=== PATIENT | male | born 1965 | race Caucasian/White ===

== ENCOUNTER 2019-06-17 07:18 | Emergency (ER) | payer BC ==
[2019-06-17] MEDS ORDERED: ACETAMINOPHEN 1,000 MG/100 ML BTL IVPB ONE (07:36)
--- NOTE | 2019-06-17 07:39 | Emergency Department Record ---
History of Present Illness - General Chief complaint: Flank Pain Stated complaint: ABD PAIN Time Seen by Provider: 06/17/19 07:29 Source: Patient Mode of Arrival: Ambulatory Limitations: No limitations - History of Present Illness Initial comments: The patient is here due to the acute onset of R flank pain about an hour and a half ago. The pain was at times radiating to his R testicle and has been waxing and waning. There has been no fever, nausea, vomiting, or mid back pain. The patient has no hx of similar issues. Presently the pain is mildly improved. MD Complaint: Other Onset/Timin -: Hour(s) Location: Right flank, Right testicle Radiation: Back Severity: Severe Severity scale (1-10): 4 Consistency: Constant Improves with: None Worsens with: None Reports: Denies other symptoms - Related Data Previous Rx's Medication Instructions Recorded Ibuprofen [Motrin] 800 mg PO TID PRN #20 tab 06/17/19 Tamsulosin HCl [Flomax] 0.4 mg PO DAILY #7 cap.er.24h 06/17/19 Allergies Allergy/AdvReac Type Severity Reaction Status Date / Time No Known Drug Allergies Allergy Verified 06/17/19 07:24 Travel Screening - Travel/Exposure Within Last 30 Days Have you traveled within the last 30 days?: No Review of Systems Constitutional: Denies: Chills, Fever Eyes: Denies: Eye discharge ENT: Denies: Congestion Respiratory: Denies: Cough, Dyspnea Past Medical History - SOCIAL HISTORY Smoking Status: Never smoker Alcohol Use: Occasional Drug Use: None - RESPIRATORY Hx Respiratory Disorders: No - CARDIOVASCULAR Hx Cardio Disorders: No - NEURO Hx Neuro Disorders: No - GI Hx GI Disorders: No - Hx Genitourinary Disorders: No - ENDOCRINE Hx Endocrine Disorders: No - MUSCULOSKELETAL Hx Musculoskeletal Disorders: No - PSYCH Hx Psych Problems: No - HEMATOLOGY/ONCOLOGY Hx Hematology/Oncology Disorders: No Family Medical History Any Significant Family History?: No Physical Exam - General General Appearance: Alert, Oriented x3, Cooperative, No acute distress - Head Head exam: Atraumatic, Normocephalic, Normal inspection - Eye Eye exam: Normal appearance, PERRL - Neck Neck exam: Normal inspection, Full ROM. negative: Tenderness - Respiratory Respiratory exam: Normal lung sounds bilaterally. negative: Respiratory distress - Cardiovascular Cardiovascular Exam: Regular rate, Normal rhythm, Normal heart sounds - GI/Abdominal GI/Abdominal exam: Soft, Normal bowel sounds. negative: Rebound, Rigid, Tenderness - Extremities Extremities exam: Normal inspection, Full ROM, Normal capillary refill. negative: Tenderness - Neurological Neurological exam: Alert, Normal gait. negative: Abnormal gait - Psychiatric Psychiatric exam: negative: Anxious Course Vital Signs 06/17/19 07:20 Temperature 97.6 F Pulse Rate 57 L Respiratory 22 Rate Blood Pressure 136/76 Pulse Ox 99 - Reevaluation(s) Reevaluation #1: The patient is doing better at this time. His pain has resolved and he is resting comfortably. We are still waiting on a UA and the official CT report. 06/17/19 08:07 Reevaluation #2: The patient is doing very well at this time and is pain free with no nausea. I did discuss the plan for the Motrin and Flomax and f/U next week if he has not passed the stone. He understands the need to return to the ER for any worsening symptoms and to see his PCP to have his prostate checked. 06/17/19 09:24 Medical Decision Making - Data Complexity MDM Data: Labs Ordered and/or Reviewed, X-Ray Ordered and/or Reviewed - Lab Data Result diagrams: 06/17/19 07:32 06/17/19 07:32 - Radiology Data Radiology results: Report reviewed (CT: 4 mm R UVJ stone with minimal hydro.) Disposition Disposition: Discharge Clinical Impression: Ureteral stone with hydronephrosis Disposition: Home, Self-Care Condition: (2) Stable Instructions: Ureteral Stones (ED) Additional Instructions: Please drink plenty of fluids and strain your urine. Take Motrin for pain and use the Flomax until you pass the stone. Please see your family doctor on Thursday if you have not passed the stone. Return to the ER for any worsening pain, fever, or vomiting. Prescriptions: Tamsulosin HCl [Flomax] 0.4 mg PO DAILY #7 cap.er.24h Ibuprofen [Motrin] 800 mg PO TID PRN #20 tab PRN Reason: Pain Forms: Patient Portal Access Time of Disposition: 09:23 Quality - Quality Measures Quality Measures: N/A - Blood Pressure Screening View Details: Yes Does Patient Have Any of the Following: No Blood Pressure Classification: Pre-Hypertensive BP Reading Systolic Measurement: 136 Diastolic Measurement: 76 Screening for High Blood Pressure: < Pre-Hypertensive BP, F/U Documented > [G89 50] Pre-Hypertensive Follow-up Interventions: Referral to alternative/primary care provider.
[2019-06-17 07:52] LABS: ABSOLUTE NEUTROPHIL COUNT 2.86; BASO % 0.6 % (0-6); GRAN % 57.1 % (47-80); HEMATOCRIT 50.1 % (42.0-52.0); HEMOGLOBIN 16.7 gm/dl (14.0-18.0); LYMPH % 29.9 % (16-45); MEAN CELL VOLUME 87.1 fl (81-97); MEAN CORPUSCULAR HGB CONC 33.3 g/dl (32-36); MEAN PLATELET VOLUME 9.8 fl (7.4-10.4); MONO % 10.4 % (0-9); PLATELET COUNT 217 K/uL (130-400); RED BLOOD COUNT 5.75 M/uL (4.40-5.70); RED CELL DISTRIBUTION WIDTH 12.9 % (11.5-14.5)
[2019-06-17 08:02] LABS: BLOOD UREA NITROGEN 17 mg/dL (6-20); EST GLOMERULAR FILTRATION RATE > 60 mL/min
[2019-06-17 08:03] LABS: TOTAL PROTEIN 7.1 g/dL (6.6-8.7)
[2019-06-17 08:05] LABS: GLUCOSE,RANDOM 124 mg/dL (74-109)
[2019-06-17] MEDS ORDERED: 0.9 % SODIUM CHLORIDE 1,000 ML BAG IV ONE (08:06)
[2019-06-17 08:08] LABS: ALBUMIN 4.5 g/dL (4.0-5.0); ALKALINE PHOSPHATASE 71 U/L (40-129); ALT/SGPT 30 U/L (<41); AST/SGOT 22 U/L (10.0-50.0); BILIRUBIN,DIRECT < 0.2 mg/dL (0-0.3)
--- NOTE | 2019-06-17 08:34 | CT SCAN REPORT ---
EXAMINATION: CT Abdomen and Pelvis without IV Contrast EXAM DATE: 06/17/2019 8:06 AM TECHNIQUE: Standard protocol CT imaging of the abdomen and pelvis was performed without intravenous c ontrast. INDICATION: R flank pain COMPARISON: None ENCOUNTER: Not applicable CT ABDOMEN AND PELVIS FINDINGS: Lung Bases: Included extent of the lung bases are clear. Hepatobiliary: The liver has a normal size with a smooth surface. There is no biliary dilatation and the gallbladder is unremarkable. Pancreas: The pancreas is normal. Spleen: The spleen is not enlarged. Adrenals: The adrenal glands are normal. Kidneys, Ureters, & Bladder: Both kidneys have a normal size and morphology. There is no hydronephro sis. No renal calculi are present. Both ureters have a normal course and caliber and the urinary blad davida a normal morphology and uniform wall thickness. At the right ureterovesical junction there is a 4 mm calculus. Gastrointestinal: The stomach and small bowel are normal with no obstruction or inflammation. The elisha endix is normal. The large bowel is within normal limits. Reproductive Organs: The prostate is prominent. It measures 4.6 cm in diameter. Lymphatic System: There is no adenopathy within the abdomen or pelvis. Vasculature: Normal caliber abdominal aorta Peritoneum: No free fluid, free air, or inflammation Abdominal wall & Musculoskeletal: No suspicious bone lesions. Assessment of the solid organs, soft tissues, and vascular structures is overall limited on noncontra st imaging, IMPRESSION: 4 mm calculus at the right ureterovesical junction. There is minimal obstructive uropathy. No other renal or ureteral calculi. Dictated by: Hannah Gonzalez MD on 06/17/2019 8:25 AM. .
[2019-06-17 09:15] LABS: URINE APPEARANCE CLEAR; URINE BILIRUBIN NEGATIVE (NEGATIVE); URINE BLOOD NEGATIVE (NEGATIVE); URINE COLOR YELLOW; URINE GLUCOSE (UA) NEGATIVE (NEGATIVE); URINE KETONE NEGATIVE (NEGATIVE); URINE LEUKOCYTE ESTERASE NEGATIVE (NEGATIVE); URINE NITRITE NEGATIVE (NEGATIVE); URINE PROTEIN NEGATIVE (NEGATIVE); URINE UROBILINOGEN 0.2 E.U./dL (0.20 - 1.00)
== END 2019-06-17 09:34 | disposition home or self-care (01) ==
LOC: ER 07:18
DX: N13.2 Hydronephrosis with renal and ureteral calculous obstruction (principal)
CPT/HCPCS: 74176; 80048; 80076; 81003; 85025; 96361; 96365; 99284; J7030